=== PATIENT | male | born 1980 | race Caucasian/White ===

== ENCOUNTER 2023-01-20 05:58 | Day surgery (SDC) | payer OTHER ==
[2023-01-14 14:11] VITALS: BMI 30.4
[2023-01-20] MEDS ORDERED: ROPIVACAINE HCL 0.5% 30ML VIAL ONE (07:24)
[2023-01-20] MEDS ORDERED: PROPOFOL 20 ML ONE (07:31)
[2023-01-20] MEDS ORDERED: PROPOFOL 40 ML ONE (07:31)
[2023-01-20] MEDS ORDERED: MIDAZOLAM HCL 2 MG/2 ML SINGLE DOSE VIAL ONE (07:31)
[2023-01-20] MEDS ORDERED: KETAMINE HCL 500 MG/10 ML VIAL ONE (07:31)
[2023-01-20] MEDS ORDERED: oxyCODONE HCL 5 MG TABLET PO PRN (07:46)
[2023-01-20] MEDS ORDERED: ONDANSETRON 4 MG/2 ML VIAL IVPUSH PRN (07:46)
[2023-01-20] MEDS ORDERED: LACTATED RINGERS SOLUTION 1,000 ML IV SCH (08:00)
[2023-01-20 10:15] VITALS: RESP 19; TEMP 98
[2023-01-20 10:17] VITALS: BP 125/77; PULSE 72
== END 2023-01-20 10:20 | disposition home or self-care (01) ==
LOC: FASU 05:58
PROVIDERS: ATTEND Orthopaedic Surgery Hand Surgery
PROC: 0RBN4ZZ Excision of Right Wrist Joint, Percutaneous Endoscopic Approach (ICD-10-PCS; principal; 2023-01-20 08:30)
DX: S63.521A Sprain of radiocarpal joint of right wrist, initial encounter (principal); X58.XXXA Exposure to other specified factors, initial encounter; Y93.9 Activity, unspecified; Y92.9 Unspecified place or not applicable
CPT/HCPCS: 94760

== ENCOUNTER 2023-03-02 23:40 | Emergency (ER) | payer OTHER ==
[2023-03-02 23:45] VITALS: BP 167/74; PULSE 92; RESP 18; TEMP 98.4; BMI 36.3
[2023-03-03 01:40] LABS: BASO % 1.5 % (0-2.0); EOS % 3.8 % (0-4.5); HEMATOCRIT 36.6 % (35.4-49); HEMOGLOBIN 11.8 GM/dL (11.7-16.9); LYMPH % 38.6 % (8-40); MCH 24.8 pg (25.7-33.7); MCHC 32.1 g/dl (32.0-35.9); MEAN CELL VOLUME 77.1 fl (80-96); MEAN PLT VOLUME 7.2 fl (7.5-11.1); MONO % 8.7 % (3.8-10.2); NEUT % 47.4 % (42.8-82.8); PLATELET COUNT 361 10^3/uL (134-434); RBC 4.75 M/mm3 (4.00-5.60); RDW 16.5 % (11.9-15.9); WHITE BLOOD COUNT 8.2 K/mm3 (4.0-10.0)
[2023-03-03 01:58] LABS: POTASSIUM 3.9 mmol/L (3.5-5.1)
[2023-03-03 02:00] LABS: ALBUMIN 3.6 g/dl (3.4-5.0)
[2023-03-03 02:01] LABS: BLOOD UREA NITROGEN 13.7 mg/dL (7-18)
[2023-03-03 02:03] LABS: CREATININE 0.9 mg/dL (0.55-1.3)
[2023-03-03 02:05] LABS: BILIRUBIN,TOTAL 0.3 mg/dL (0.2-1); TOT PROT 7.1 g/dl (6.4-8.2)
== END 2023-03-03 05:09 | disposition home or self-care (01) ==
LOC: JER 23:40
DX: R07.9 Chest pain, unspecified (principal); Z20.822 Contact with and (suspected) exposure to COVID-19
CPT/HCPCS: 0241U-QW; 36415; 71275-TC; 80053; 84484; 85025; 85379; 93005; 93010; 99285-25

== ENCOUNTER 2024-04-15 17:05 | Emergency (ER) | payer OTHER ==
[2024-04-15 17:13] VITALS: BP 164/97; PULSE 90; RESP 18; TEMP 98.1; BMI 29.6
[2024-04-15] MEDS ORDERED: ACETAMINOPHEN 325 MG TABLET (FP) ONE (17:30)
[2024-04-15] MEDS ORDERED: IBUPROFEN 600 MG TABLET (FP) PO ONE (17:30)
[2024-04-15] MEDS: IBUPROFEN 600 MG TABLET (FP) PO ONE (17:32)
[2024-04-15] MEDS: ACETAMINOPHEN 325 MG TABLET (FP) PO ONE (17:32)
== END 2024-04-15 18:36 | disposition home or self-care (01) ==
LOC: JERFT 17:05
DX: S63.501A Unspecified sprain of right wrist, initial encounter (principal); X50.9XXA Other and unspecified overexertion or strenuous movements or postures, initial encounter; Y92.39 Other specified sports and athletic area as the place of occurrence of the external cause
CPT/HCPCS: 73110-TC-RT-FY; 73130-TC-RT-FY; 99283-25